=== PATIENT | female | born 1940 | race Caucasian/White ===

== ENCOUNTER → 2019-02-01 | Outpatient (CLI) | payer OTHER ==
[~2019-02-01] MED LIST: FLUZONE 2045 MCG/011; LIPITOR20 MG; LISINOPRIL10 MG; PNEUMOVAX25 MCG/0.5
== END ==
LOC: M.RAD 10:40
DX: Z12.31 Encounter for screening mammogram for malignant neoplasm of breast (principal)

== ENCOUNTER → 2020-02-15 | Outpatient (CLI) | payer OTHER | LOC: M.RAD 10:32 | PROVIDERS: ATTEND Family Medicine | DX: Z12.31 Encounter for screening mammogram for malignant neoplasm of breast (principal) ==